=== PATIENT | female | born 2000 | race African-American/Black ===

== ENCOUNTER 2022-08-18 01:43 | Emergency (ER) | payer MEDICAID ==
[~2022-08-18] VITALS: Ht 172.7 cm; Wt 120.0 kg
[~2022-08-18 01:43] MED LIST: PREN-134 PO
[2022-08-18] MEDS ORDERED: IBUPROFEN 600MG TABLET PO STA (02:06)
[2022-08-18] MEDS ORDERED: LIDO700A30 TP (03:47)
[2022-08-18] MEDS ORDERED: IBUP-2029 MT (03:47)
[2022-08-18] MEDS ORDERED: IBUPROFEN 600MG TABLET PO NR (04:00)
[2022-08-18 04:10] VITALS: BP 112/65
== END 2022-08-18 04:13 | disposition home or self-care (01) ==
LOC: ER 01:43
DX: M54.50 Low back pain, unspecified (principal); M25.511 Pain in right shoulder; R01.1 Cardiac murmur, unspecified; E66.9 Obesity, unspecified; Z68.41 Body mass index [BMI] 40.0-44.9, adult; V43.62XA Car passenger injured in collision with other type car in traffic accident, initial encounter; Y93.89 Activity, other specified; Y92.411 Interstate highway as the place of occurrence of the external cause
CPT/HCPCS: 71045; 72100; 73030; 81025; 99284

== ENCOUNTER 2023-06-30 09:54 | Inpatient (IN) | payer MEDICAID ==
[~2023-06-30] VITALS: Ht 170.2 cm; Wt 128.8 kg
[~2023-06-30 09:54] MED LIST changes: +IBUP-2029 MT; +LIDO700A30 TP
[2023-06-30] MEDS ORDERED: RHO(D) IMMUNE GLOBULIN 300 MCG/SYR IM ONE (11:45)
[2023-06-30] MEDS ORDERED: MAGNESIUM 4 G PREMIX 100 ML IV ONE (12:15)
[2023-06-30] MEDS: DEXT 5%/LACTATED RINGERS 1,000 ML IV SCH ×3 (12:31→19:46)
[2023-06-30] MEDS: AZITHROMYCIN 500 MG in DEXT 5% WATER 250 ML IV SCH (12:31)
[2023-06-30 12:37] LABS: CLARITY URINE TURBID (CLEAR); COLOR URINE ORANGE (YELLOW); GLUCOSE URINE 2+ (NEGATIVE); KETONES URINE NEGATIVE (NEGATIVE); LEUKOCYTE ESTERASE URINE TRACE (NEGATIVE); NITRITE URINE NEGATIVE (NEGATIVE); OCCULT BLOOD URINE 3+ (NEGATIVE); PH URINE 7.5 (4.5-8.0); PROTEIN URINE 3+ (NEGATIVE); SPECIFIC GRAVITY URINE 1.012 (1.005-1.030); UROBILINOGEN URINE 0.2 E.U./dL (0.2-1.0)
[2023-06-30 13:00] LABS: BASOPHILS % 0.3 % (0.0-2.0); EOSINOPHILS % 1.1 % (0.0-5.0); HEMATOCRIT. 31.6 % (36.0-48.0); HEMOGLOBIN. 10.5 g/dL (12.0-16.0); LYMPHOCYTES % 31.2 % (20.0-50.0); MEAN CORPUSCULAR HEMOGLOBIN 28.7 pg (28.0-32.0); MEAN CORPUSCULAR HGB CONC 33.1 g/dL (31.0-37.0); MEAN CORPUSCULAR VOLUME 86.6 fL (81.0-99.0); NEUTROPHILS % 60.4 % (40.0-76.0); PLATELET 292 x1000/uL (130-400); RED BLOOD CELL COUNT 3.65 mill/uL (4.2-5.4); RED CELL DISTRIBUTION WIDTH 14.6 % (11.6-14.6); WHITE BLOOD COUNT 7.6 x1000/uL (4.5-11.0)
[2023-06-30] MEDS ORDERED: BETAMETHASONE ACET/BETAMET 30 MG/5 ML VIAL IM SCH (13:00)
[2023-06-30] MEDS ORDERED: ONDANSETRON HCL 4MG/2ML INJ IV SCH (13:00)
[2023-06-30 13:10] LABS: *AMPHETAMINES SCREEN URINE NEGATIVE (NEGATIVE); *BARBITURATES SCREEN URINE NEGATIVE (NEGATIVE); *BENZODIAZEPINES SCREEN URINE NEGATIVE (NEGATIVE); *COCAINE SCREEN URINE NEGATIVE (NEGATIVE); CANNABINOID URINE SCREEN NEGATIVE (NEGATIVE); ECSTASY MDMA SCREEN URINE NEGATIVE (NEGATIVE); OPIATES URINE SCREEN NEGATIVE (NEGATIVE); PHENCYCLIDINE URINE SCREEN NEGATIVE (NEGATIVE)
[2023-06-30 13:19] LABS: PARTIAL THROMBOPLASTIN TIME 29.1 sec (23.4-31.0); PROTHROMBIN TIME 10.3 sec (9.6-11.0)
[2023-06-30] MEDS: BETAMETHASONE ACET/BETAMET 30 MG/5 ML VIAL IM SCH (13:19)
[2023-06-30 13:21] LABS: BACTERIA URINE 2+; RBC URINE TNTC /hpf (0-2); SQUAMOUS EPITHELIAL CELL URINE 3+ /lpf (RARE/1+)
[2023-06-30 13:22] LABS: WBC URINE 0-2 /hpf (0-2)
[2023-06-30 13:25] LABS: RAPID HIV SCREEN NEGATIVE (NEGATIVE)
[2023-06-30] MEDS: MAGNESIUM 20 G PREMIX (L & D) 500 ML IV SCH (13:53)
[2023-06-30] MEDS: AMPICILLIN 2,000 MG in SODIUM CHLORIDE 0.9% 100 ML IV SCH ×3 (15:40→21:24)
[2023-06-30] MEDS ORDERED: CALC-1139 MT (21:49)
[2023-06-30] MEDS ORDERED: PV W1TAB21 PO (21:49)
[2023-06-30] MEDS ORDERED: FOLI20CA PO (21:49)
[2023-06-30] MEDS ORDERED: FERR325T6 PO (21:49)
[2023-07-01] MEDS: MAGNESIUM 20 G PREMIX (L & D) 500 ML IV SCH (01:12)
[2023-07-01] MEDS: DEXT 5%/LACTATED RINGERS 1,000 ML IV SCH ×2 (03:24→03:25)
[2023-07-01] MEDS: BETAMETHASONE ACET/BETAMET 30 MG/5 ML VIAL IM SCH ×2 (03:25→13:09)
[2023-07-01] MEDS: AMPICILLIN 2,000 MG in SODIUM CHLORIDE 0.9% 100 ML IV SCH ×3 (03:30→15:29)
[2023-07-01] MEDS: AZITHROMYCIN 500 MG in DEXT 5% WATER 250 ML IV SCH (03:40)
[2023-07-01 07:20] VITALS: BP 120/60; PULSE 100; RESP 18; O2SAT 99
[2023-07-01] MEDS ORDERED: MAGNESIUM 20 G PREMIX (L & D) 500 ML IV SCH (07:20)
[2023-07-01] MEDS ORDERED: BETAMETHASONE ACET/BETAMET 30 MG/5 ML VIAL IM SCH (12:23)
== END 2023-07-01 18:30 | disposition short-term general hospital (02) | DRG 566 ==
LOC: 8 EST LDRP 09:54 → OBSVTOIN 10:55
PROVIDERS: ADMIT Obstetrics & Gynecology; ATTEND Obstetrics & Gynecology
DX: O42.912 Preterm premature rupture of membranes, unspecified as to length of time between rupture and onset of labor, second trimester (principal); Z3A.27 27 weeks gestation of pregnancy
CPT/HCPCS: 36415; 76805; 76818; 80305; 81003; 83735; 85025; 86592; 86703; 86762; 86850; 86900; 87340; G0378; J0290; J0456; J0702; J2405; J3475; J7050; J7060; J7121; A4315